=== PATIENT | female | born 1970 | race Caucasian/White ===

== ENCOUNTER 2018-07-02 03:52 | Observation (INO) ==
[2018-07-02] MEDS ORDERED: Aspirin 81 MG TAB.CHEW PO ONE (03:55)
[2018-07-02] MEDS ORDERED: Nitroglycerin 0.4 MG TAB.SUBL SL PRN (04:10)
[2018-07-02 04:13] LABS: Basophils % 0.3 %; Eosinophils # 0.1 K/mcL (0.0-0.6); Eosinophils % 0.8 %; Hematocrit 44.9 % (35.3-44.9); Hemoglobin 15.1 g/dL (11.5-15.4); Immature Granulocytes % 0.5 % (0-4); Lymphocytes # 2.3 K/mcL (0.6-4.6); Lymphocytes % 25.9 %; Mean Corpuscular HGB Conc 33.6 g/dL (31.6-35.5); Mean Corpuscular Hemoglobin 33.6 pg (28.0-33.3); Mean Corpuscular Volume 99.8 fL (83.0-100.0); Mean Platelet Volume 11.1 fL (9.4-12.4); Monocytes # 0.6 K/mcL (0.0-1.3); Monocytes % 6.9 %; Neutrophils # 5.8 K/mcL (1.6-8.9); Platelet Count 219 K/mcL (140-400); Red Cell Distribution Width 13.2 % (11.5-14.5); Segmented Neutrophils % 65.6 %
[2018-07-02 04:21] LABS: Prothrombin Time 11.4 Seconds (9.4-12.1)
[2018-07-02 04:23] LABS: Activated Partial Thrombo Time 34.9 Seconds (26.0-36.0)
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
[2018-07-02 04:33] LABS: BUN/Creatinine Ratio 14 (6-26); Blood Urea Nitrogen 12 mg/dL (6-20); Calcium 9.3 mg/dL (8.6-10.3); Carbon Dioxide 28 mEq/L (23-29); Chloride 102 mEq/L (98-107); Glucose 89 mg/dL (70-105); Osmolality,Calculated 281 (280-300); Potassium 3.1 mEq/L (3.5-5.1); Sodium 136 mEq/L (136-145); eGFR For Non-African Americans > 60 (> 60)
[2018-07-02 04:34] LABS: Troponin I < 0.03 ng/mL (< 0.04)
[2018-07-02] MEDS ORDERED: *HR* FentaNYL (PF) 100 MCG/2 ML VIAL IVP ONE (05:03)
[2018-07-02] MEDS ORDERED: Acetaminophen/Butalbital/CaffeineTABLET PO SCH (09:15)
[2018-07-02] MEDS ORDERED: valACYclovir 500 MG TABLET PO SCH (09:15)
[2018-07-02] MEDS ORDERED: Gabapentin 300 MG CAPSULE PO SCH (09:15)
[2018-07-02] MEDS ORDERED: hydroCHLOROthiazide 25 MG TABLET PO SCH (09:15)
[2018-07-02] MEDS ORDERED: Aspirin Enteric Coated 81 MG Tablet PO SCH (09:15)
[2018-07-02] MEDS ORDERED: clonazePAM 0.5 MG TABLET PO SCH (09:15)
[2018-07-02] MEDS ORDERED: Ondansetron 4 MG/2 ML VIAL IVP PRN (09:25)
[2018-07-02] MEDS ORDERED: Acetaminophen 325 MG TABLET PO PRN (09:25)
[2018-07-02] MEDS ORDERED: Mag Hydrox/Al Hydrox/Simeth 30 ML UDC PO PRN (09:25)
[2018-07-02] MEDS ORDERED: Naloxone 0.4 MG/ML INJ IVP PRN (09:25)
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
[2018-07-02] MEDS: lamoTRIgine 25 MG TABLET PO SCH ×2 (10:57→11:06)
[2018-07-02] MEDS: tiZANidine 4 MG TABLET PO SCH ×2 (11:00→15:01)
[2018-07-02] MEDS: Gabapentin 300 MG CAPSULE PO SCH ×2 (11:02→15:01)
[2018-07-02 14:58] VITALS: BP 96/62
[2018-07-02] MEDS ORDERED: hydrOXYzine pamoate 25 MG CAPSULE PO SCH (21:00)
--- NOTE | 2018-07-06 09:31 | Electrocardiograph Report ---
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
== END 2018-07-02 17:45 | disposition left against medical advice (07) ==
LOC: 3BNU 03:52 → EMEROOARM 03:52 → 3BNU 07:46
PROVIDERS: ADMIT Internal Medicine; ATTEND Internal Medicine